=== PATIENT | male | born 1990 | race Caucasian/White ===

== ENCOUNTER 2022-03-03 14:32 | Emergency (ER) | payer BC, MEDICAID, OTHER ==
[~2022-03-03] VITALS: Ht 170.2 cm; Wt 96.8 kg
[2022-03-03 16:08] LABS: Basophils # (auto) 0 10 ^3/uL (0-0.2); Basophils % (auto) 0.7 % (0.0-2.0); Eosinophils # (auto) 0 10 ^3/uL (0-0.8); Eosinophils % (auto) 0.3 % (0.0-7.0); Hematocrit 44.5 % (41.0-53.0); Hemoglobin 15.1 g/dL (13.5-17.5); Lymphocytes # (auto) 1.4 10 ^3/uL (0.4-5.4); Lymphocytes % (auto) 23.4 % (10.0-50.0); Mean Corpuscular Hemoglobin 28.4 pg (28.0-32.0); Mean Corpuscular Volume 83.7 fL (80.0-100.0); Monocytes # (auto) 0.3 10 ^3/uL (0-1.3); Monocytes % (auto) 4.5 % (0.0-12.0); Neutrophils # (auto) 4.2 10 ^3/uL (1.6-8.6); Neutrophils % (auto) 71.1 % (37.0-80.0); Red Blood Cells 5.31 10^6/uL (4.5-5.90); Red Cell Distribution Width 12.3 % (11.8-14.3)
[2022-03-03 16:25] LABS: Albumin 4.4 g/dL (3.4-5.0); Calcium 8.9 mg/dL (8.5-10.1); Potassium 4.2 mmol/L (3.5-5.1)
[2022-03-03 16:27] LABS: BUN/Creatinine Ratio 11.5
[2022-03-03 16:29] LABS: Bilirubin, Total 0.4 mg/dL (0.2-1.0); Total Protein 7.4 g/dL (6.4-8.2)
[2022-03-03 18:48] VITALS: BP 124/78
== END 2022-03-03 18:48 | disposition home or self-care (01) ==
LOC: ER 14:32
DX: R42 Dizziness and giddiness (principal)
CPT/HCPCS: 36415; 70450; 80053; 84484; 85025; 93005